=== PATIENT | male | born 1975 | race Two or more races ===

== ENCOUNTER 2025-02-18 18:52 | Emergency (ER) | payer OTHER, SELFPAY ==
[2025-02-18 18:53] VITALS: BMI 45.1
--- NOTE | 2025-02-18 19:24 | XR_ITS ---
EXAMINATION: Ankle, left 3 views . Technique: Ankle AP, oblique, lateral 3 views Date and time of exam: February 18, 20252 hrs. Indications: Twisting injury to the ankle today, ankle pain. Findings: Subluxation, mild of the distal articulating surface tibia medially relative to the dome the talus Acute fracture distal fibular shaft, 5 mm offset at the fracture site Acute fracture medial malleolus 7 mm separation at the fracture site Suspicious for nondisplaced posterior malleolar fracture Impression: Ankle subluxation with trimalleolar fractures
--- NOTE | 2025-02-18 19:28 | PD.EDANKLE ---
Lower Extremity Injury RME/HPI General Chief Complaint: Ankle/Foot Injury Stated Complaint: INJURY TO LEFT ANKLE TODAY Time Seen by Provider: 02/18/25 18:56 Arrival date/time: 02/18/25 18:52 49 year old male present to emergency room with c/o of GLF injury left ankle today. patient report able to catch himself land on his ankle and right forearm. Pt is currently on Coumadin. last INR was 2 weeks ago 2.6. Patient denies any Head/neck injury, loc or syncope episode LOCATION: ankle SEVERITY: Symptoms are described as being severe with limitations on activities of daily living QUALITY: Symptoms are described as being dull or achy CONTEXT: GLF, twisted ankle DURATION/TIMING: The symptoms started approximately immediately prior to arrival ago and have been constant this then. ASSOCIATED SYMPTOMS: The patient is unable to identify any other associated symptoms. MODIFYING FACTORS: The patient is unable to identify any alleviating or aggravating symptoms. PERTINENT ROS: no fevers, no headache, no neck or chest pain, no unexplained nausea or vomiting, no focal neurological deficits REVIEW OF SYSTEMS: See History of Present Illness - with the exception of those mentioned in the history of present illness, all other systems reviewed and reported as negative GENERAL: In general the patient is awake, interactive, in an emergency department gurney. HEAD/EYES/EARS/NOSE/THROAT: normo-cephalic, atraumatic, mucus membranes are moist, anicteric, palpebral conjunctiva is pink, trachea is midline. CARDIOVASCULAR: regular rate and regular rhythm, no murmurs, heart sounds are not distant, strong pulses in all four extremities that are equal and symmetric bilateral upper and lower extremities, normal capillary refill. CHEST/PULMONARY: normal chest rise and fall, good air movement, clear to auscultation bilaterally, normal inspiratory to expiratory ratios without evidence of respiratory distress. NECK: No midline/Paraspinal tenderness, no step off ROM/Strenght intact No Kernig and bruzinski sign. No trauma ABDOMEN: soft, not tender, no masses appreciated BACK: normal range of motion without pain. NEUROLOGICAL: cranio-facial features are symmetric, moves all four extremities equally without obvious limitations or weakness. EXTREMITY: + left lateral ankle tenderness, no tenderness to palpation over the long bones or large joints of the bilateral upper extremities, no joint swelling, no joint erythema, , no unilateral leg swelling and no peripheral edema. SKIN: warm, dry, well-perfused, no jaundice, no rash, no telangiectasias or petechia. PSYCH: calm, cooperative, no evidence of psychosis or agitation Related Data Home Medications ?Medication ?Instructions ?Recorded ?Confirmed carvedilol 3.125 mg tablet (Coreg) 3.25 mg PO QDAY 07/08/19 07/08/19 Previous Rx's ?Medication ?Instructions ?Recorded diphenhydramine HCl 50 mg capsule 50 mg PO QID #20 caps 07/08/19 famotidine 20 mg tablet (Pepcid) 20 mg PO BID #10 tabs 07/08/19 prednisone 10 mg tablet 30 mg (3 x 10 mg) PO BID #12 tabs 07/08/19 cephalexin 500 mg capsule (Keflex) 500 mg PO BID #14 caps 08/18/19 prednisone 20 mg tablet 20 mg PO QDAY #3 tabs 08/18/19 Allergies Allergy/AdvReac Type Severity Reaction Status Date / Time grape Allergy Intermediate Rash Verified 02/18/25 18:54 Course Course Course Narrative: INR 4.0. advised pt to follow up with PCP, stop one dosing pt decline CT follow up with dr. Zimmerman. Quality Measures none Orders Category Date Time Status Crutches .NOW Care 02/18/25 20:21 Completed Splint / Immobilizer STAT Care 02/18/25 20:[address] head/brain wo con Stat Exams 02/18/25 21:27 Ordered XR ankle comp LT min 3V Stat Exams 02/18/25 19:24 Completed XR ankle comp LT min 3V Stat Exams 02/18/25 21:01 Completed Prothrombin Time with INR Stat Lab 02/18/25 19:43 Completed Acetaminophen Tab [Tylenol ES Tab] Med 02/18/25 19:41 Discontinued 1,000 mg PO X1 ONE Vital Signs Vital signs: Vital Signs Temperature 99.3 F 02/18/25 19:35 Pulse Rate 61 02/18/25 19:35 Respiratory Rate 18 02/18/25 19:35 Blood Pressure 121/71 02/18/25 19:35 Pulse Oximetry (%) 95 02/18/25 19:35 Oxygen Delivery Method Room Air 02/18/25 19:35 Extremity Injury, Lower Patient data External records reviewed:: [facility] previous records Clinical information provided by:: patient Social determinants that could affect healthcare access:: none Patient has the following chronic illnesses:: as stated in chart How is presenting disease/condition affected by chronic disease/condition?: no chronic disease Evaluation data The following diagnostics were reviewed and interpreted by me:: radiology exam(s) Lab and/or radiology exams considered but not ordered:: n/a Interpretation Summary: Subluxation, mild of the distal articulating surface tibia medially relative to the dome the talus Acute fracture distal fibular shaft, 5 mm offset at the fracture site Acute fracture medial malleolus 7 mm separation at the fracture site Suspicious for nondisplaced posterior malleolar fracture Impression: Ankle subluxation with trimalleolar fractures Medications / Prescriptions Medications or Prescriptions considered but not ordered:: n/a Medication administrations:: Medication Administration History Discontinued Medications Acetaminophen (Acetaminophen 500 Mg Tablet) 1,000 mg PO X1 ONE Stop: 02/18/25 19:42 Last Admin: 02/18/25 20:01 Dose: 1,000 mg Documented By: SADIE as stated above Consultations Consultation(s) initiated? (list below): Yes Consultation #1 (Physician, Specialty, Details): Spoke with Dr. Zimmerman 2009, will look at images and response back Diagnosis Extremity Injury, Lower Differential Diagnosis: ankle sprain and strain, acute internal derangement of knee and ankle fracture Most likely diagnosis given after review of the tests above:: Ankle subluxation with trimalleolar fractures Admission Indicated Admission indicated?: not indicated Admission Request Was there a request for admission?: No Disposition Plan Disposition Plan: Discharge Discharge Attestation Discharge Attestation: The patient and all family members were given an opportunity to ask questions and understood the discharge instructions. Discharge instructions specifically effects, indications for sooner follow up or return to the emergency department, and the expected course of current diagnosis. Patient condition: Stable Discharge Plan Plan Patient Disposition: HOME (Self Care) Prescriptions/Referrals Prescriptions/Med Rec: No Action prednisone 10 mg tablet 30 mg PO BID Qty: 12 0RF Rx Instructions: administer with food or milk diphenhydramine HCl 50 mg capsule 50 mg PO QID Qty: 20 0RF Rx Instructions: Take 1 tablet 4 times a day on the first day and, after that, take 1 tablet 4 times a day only if necessary for itching. famotidine [Pepcid] 20 mg tablet 20 mg PO BID Qty: 10 0RF carvedilol [Coreg] 3.125 mg Tablet 3.25 mg PO QDAY cephalexin [Keflex] 500 mg capsule 500 mg PO BID Qty: 14 0RF prednisone 20 mg tablet 20 mg PO QDAY Qty: 3 0RF Referrals: Joseph Santos MD [Primary Care Provider] - In 1 week Danny Zimmerman MD [Physician] - 02/20/25 Problem List Clinical Impression: Ankle fracture Patient/Caregiver Discharge Instructions Education Materials: ED Ankle Fracture Print Language: [place] Stand Alone Forms: Gisselle Award Info., Patient Portal Info Letter
[2025-02-18 19:35] VITALS: BP 121/71; PULSE 61; RESP 18; TEMP 37.4; O2SAT 95
[2025-02-18] MEDS: ACETAMINOPHEN 500 MG TABLET 1000 MG PO (20:01)
--- NOTE | 2025-02-18 21:01 | XR_ITS ---
EXAMINATION: Ankle, left 3 views . Technique: Ankle AP, oblique, lateral 3 views Date and time of exam: February 18, 20250 hrs. Comparison February 18, 20251952 hrs. Indications: Ankle subluxation with trimalleolar fractures February 18, 20251952 hrs. Post reduction Findings: Improvement in alignment at the tibiotalar joint mild widening anteriorly on the lateral view Improved alignment medial malleolar fracture Stable alignment distal fibular fracture Impression: Improved alignment ankle dislocation and fractures as above
== END 2025-02-18 22:28 | disposition home or self-care (01) ==
PROVIDERS: Physician Assistant; Emergency Provider Emergency Medicine; PCP Internal Medicine Hospice and Palliative Medicine
DX: S82.852A Displaced trimalleolar fracture of left lower leg, initial encounter for closed fracture (principal); X50.1XXA Overexertion from prolonged static or awkward postures, initial encounter
CPT/HCPCS: 29515; 36415; 73610; 85610; 99283; A9270

== ENCOUNTER 2025-02-19 01:06 | Emergency (ER) | payer OTHER, SELFPAY ==
[2025-02-19 01:07] VITALS: BMI 44.7
--- NOTE | 2025-02-19 01:16 | PD.EDLOWEX ---
Lower Extremity Injury RME/HPI General Chief Complaint: Extremity Injury, Lower Stated Complaint: SEEN EARLIER FOR ANKLE FX;STATES CANT FEEL TOES Time Seen by Provider: 02/19/25 01:16 Arrival date/time: 02/19/25 01:06 49 year old male present to emergency room with c/o of cant feel toes recently seen at [facility] and diagnoses with ankle fracture. No new injury or trauma LOCATION: toes SEVERITY: Symptoms are described as being severe with limitations on activities of daily living QUALITY: Symptoms are described as being dull or achy CONTEXT: ankle fracture, seen earlier today DURATION/TIMING: The symptoms started approximately immediately prior to arrival ago and have been constant this then. ASSOCIATED SYMPTOMS: The patient is unable to identify any other associated symptoms. MODIFYING FACTORS: The patient is unable to identify any alleviating or aggravating symptoms. PERTINENT ROS: no fevers, no headache, no neck or chest pain, no unexplained nausea or vomiting, no focal neurological deficits REVIEW OF SYSTEMS: See History of Present Illness - with the exception of those mentioned in the history of present illness, all other systems reviewed and reported as negative GENERAL: In general the patient is awake, interactive, in an emergency department gurney. HEAD/EYES/EARS/NOSE/THROAT: normo-cephalic, atraumatic, mucus membranes are moist, anicteric, palpebral conjunctiva is pink, trachea is midline. NEUROLOGICAL: cranio-facial features are symmetric, moves all four extremities equally without obvious limitations or weakness. EXTREMITY: left ankle splint in placed, cap refill < 2sec, no sign of discoloration no tenderness to palpation over the long bones or large joints of the bilateral upper , no joint swelling, no joint erythema, no signs of trauma, no unilateral leg swelling and no peripheral edema. SKIN: warm, dry, well-perfused, no jaundice, no rash, no telangiectasias or petechia. PSYCH: calm, cooperative, no evidence of psychosis or agitation Related Data Home Medications ?Medication ?Instructions ?Recorded ?Confirmed carvedilol 3.125 mg tablet (Coreg) 3.25 mg PO QDAY 07/08/19 07/08/19 Previous Rx's ?Medication ?Instructions ?Recorded diphenhydramine HCl 50 mg capsule 50 mg PO QID #20 caps 07/08/19 famotidine 20 mg tablet (Pepcid) 20 mg PO BID #10 tabs 07/08/19 prednisone 10 mg tablet 30 mg (3 x 10 mg) PO BID #12 tabs 07/08/19 cephalexin 500 mg capsule (Keflex) 500 mg PO BID #14 caps 08/18/19 prednisone 20 mg tablet 20 mg PO QDAY #3 tabs 08/18/19 hydrocodone 5 mg-acetaminophen 325 1 tab PO Q8H PRN pain #14 tabs 02/19/25 mg tablet Allergies Allergy/AdvReac Type Severity Reaction Status Date / Time grape Allergy Intermediate Rash Verified 02/19/25 01:12 Course Course Course Narrative: exam is wnl, no sign of infection, or vascular compromise. cap refill< 2sec, n/v/s intact Quality Measures none Orders Category Date Time Status HYDROcodone/APAP 10/325 [[place] 10/325] Med 02/19/25 01:44 Discontinued 1 tab PO X1 ONE Vital Signs Vital signs: Vital Signs Temperature 99.6 F 02/19/25 01:41 Pulse Rate 63 02/19/25 01:41 Respiratory Rate 18 02/19/25 01:41 Blood Pressure 163/85 H 02/19/25 01:41 Pulse Oximetry (%) 95 02/19/25 01:41 Oxygen Delivery Method Room Air 02/19/25 01:41 Extremity Injury, Lower Patient data External records reviewed:: [facility] previous records Clinical information provided by:: patient Social determinants that could affect healthcare access:: none Patient has the following chronic illnesses:: as stated in chart How is presenting disease/condition affected by chronic disease/condition?: no chronic disease Evaluation data The following diagnostics were reviewed and interpreted by me:: other (specify) (n/a ) Lab and/or radiology exams considered but not ordered:: n/a Interpretation Summary: n/a Medications / Prescriptions Medications or Prescriptions considered but not ordered:: n/a Medication administrations:: Medication Administration History Discontinued Medications Hydrocodone Bitart/Acetaminophen (Hydrocodone/Apap 10/325 Tab) 1 tab PO X1 ONE Stop: 02/19/25 01:45 as stated above Consultations Consultation(s) initiated? (list below): No Diagnosis Most likely diagnosis given after review of the tests above:: ankle fx Admission Indicated Admission indicated?: not indicated Admission Request Was there a request for admission?: No Disposition Plan Disposition Plan: Discharge Discharge Attestation Discharge Attestation: The patient and all family members were given an opportunity to ask questions and understood the discharge instructions. Discharge instructions specifically effects, indications for sooner follow up or return to the emergency department, and the expected course of current diagnosis. Patient condition: Stable Discharge Plan Plan Patient Disposition: HOME (Self Care) Health Concerns: Follow up with Dr. Zimmerman on Thursday as discussed Return to ED if symptoms worsen Prescriptions/Referrals Prescriptions/Med Rec: New hydrocodone-acetaminophen 5-325 mg tablet 1 tab PO Q8H MDD 3 PRN (Reason: pain) Qty: 14 0RF No Action prednisone 10 mg tablet 30 mg PO BID Qty: 12 0RF Rx Instructions: administer with food or milk diphenhydramine HCl 50 mg capsule 50 mg PO QID Qty: 20 0RF Rx Instructions: Take 1 tablet 4 times a day on the first day and, after that, take 1 tablet 4 times a day only if necessary for itching. famotidine [Pepcid] 20 mg tablet 20 mg PO BID Qty: 10 0RF carvedilol [Coreg] 3.125 mg Tablet 3.25 mg PO QDAY cephalexin [Keflex] 500 mg capsule 500 mg PO BID Qty: 14 0RF prednisone 20 mg tablet 20 mg PO QDAY Qty: 3 0RF Problem List Clinical Impression: Ankle fracture Patient/Caregiver Discharge Instructions Education Materials: ED Fracture, Lower Extremity Print Language: Nepali Stand Alone Forms: Gisselle Award Info., Patient Portal Info Letter
[2025-02-19 01:41] VITALS: BP 163/85; PULSE 63; RESP 18; TEMP 37.6; O2SAT 95
[2025-02-19] MEDS: HYDROcodone/APAP 10/325 TAB PO (01:56)
[2025-02-19 02:26] VITALS: RESP 18
== END 2025-02-19 02:51 | disposition home or self-care (01) ==
LOC: SERX 01:46
PROVIDERS: Emergency Provider Emergency Medicine
DX: S82.892A Other fracture of left lower leg, initial encounter for closed fracture (principal); X58.XXXA Exposure to other specified factors, initial encounter
CPT/HCPCS: 99283; A9270

== ENCOUNTER → 2025-04-28 | Outpatient (CLI) | payer OTHER, SELFPAY ==
--- NOTE | 2025-04-28 12:58 | XR_ITS ---
EXAMINATION: Ankle, left 3 views . 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
== END | disposition home or self-care (01) ==
PROVIDERS: Referring Provider Podiatrist; Visit Provider Podiatrist
DX: S82.852D Displaced trimalleolar fracture of left lower leg, subsequent encounter for closed fracture with routine healing (principal); X58.XXXD Exposure to other specified factors, subsequent encounter
CPT/HCPCS: 73610

== ENCOUNTER → 2025-05-12 | Outpatient (CLI) | payer OTHER, SELFPAY ==
--- NOTE | 2025-05-12 10:52 | XR_ITS ---
EXAMINATION: Ankle, left 3 views . Technique: Ankle AP, oblique, lateral 3 views Date and time of exam: May 12, 2025 1111 hours INDICATIONS: Fracture fibula January 2025 postop reduction internal fixation FINDINGS: Ununited old fracture medial malleolus Healed fracture distal fibular shaft with satisfactory position sideplate Possible healed nondisplaced posterior malleolar fracture No ankle dislocation IMPRESSION: Healed fracture fibular shaft with satisfactory alignment
== END | disposition home or self-care (01) ==
LOC: SDIM 10:41
PROVIDERS: PCP Internal Medicine Hospice and Palliative Medicine; Referring Provider Podiatrist; Visit Provider Podiatrist
DX: Z87.81 Personal history of (healed) traumatic fracture (principal)
CPT/HCPCS: 73610